=== PATIENT | male | born 1990 | race Caucasian/White ===

== ENCOUNTER 2016-10-19 17:30 | Emergency (ER) | payer MEDICAID ==
[2016-10-19] MEDS ORDERED: ONDANSETRON ODT 4 MG TAB ONE (20:27)
== END 2016-10-19 21:37 | disposition home or self-care (01) ==
LOC: ER 17:30
DX: S06.0X0A Concussion without loss of consciousness, initial encounter (principal); S09.8XXA Other specified injuries of head, initial encounter; S16.1XXA Strain of muscle, fascia and tendon at neck level, initial encounter; L04.0 Acute lymphadenitis of face, head and neck; J02.9 Acute pharyngitis, unspecified; Z87.891 Personal history of nicotine dependence
CPT/HCPCS: 70450; 72125